=== PATIENT | male | born 1960 | race Caucasian/White ===

== ENCOUNTER 2018-11-17 08:20 | Inpatient (IN) | payer OTHER ==
[~2018-11-17] VITALS: Ht 177.8 cm; Wt 84.2 kg
[2018-11-17] MEDS: SODIUM CHLORIDE 0.9% 1,000 ML IV SCH ×3 (08:44→23:57)
[2018-11-17] MEDS ORDERED: SODIUM CHLORIDE 0.9% 1,000 ML IV SCH (08:51)
[2018-11-17 08:59] VITALS: BP 118/81
[2018-11-17] MEDS ORDERED: PLEASE ENTER ALLERGIES MC SCH (09:00)
[2018-11-17] MEDS ORDERED: PLEASE ENTER HEIGHT AND WEIGHT MC SCH (09:00)
[2018-11-17] MEDS ORDERED: BUDE10.2 INH (09:09)
[2018-11-17] MEDS ORDERED: TEST1.25 TP (09:09)
[2018-11-17] MEDS ORDERED: ALPR-475 PO (09:09)
[2018-11-17] MEDS ORDERED: TAMS0.4C2 PO (09:09)
[2018-11-17] MEDS ORDERED: OMEP-110 PO (09:09)
[2018-11-17] MEDS ORDERED: ALBU18HF INH (09:09)
[2018-11-17] MEDS ORDERED: ASPI81TA45 PO (09:09)
[2018-11-17] MEDS ORDERED: SUVO20TA PO (09:09)
[2018-11-17] MEDS ORDERED: MIDAZOLAM 1 MG/ML, 5ML ONE (10:04)
[2018-11-17] MEDS ORDERED: FENTANYL PF 100 MCG/2ML ONE ×2 (10:04→10:18)
[2018-11-17] MEDS ORDERED: LIDOCAINE 1%, 20ML ONE (10:04)
[2018-11-17] MEDS ORDERED: CEFAZOLIN PMX 1GM/50ML 50 ML ONE (10:04)
[2018-11-17] MEDS ORDERED: CEFAZOLIN 1,000 MG ONE (10:05)
[2018-11-17] MEDS ORDERED: TEMPLATE NON-FORMULARY MED. (Albuterol Sulfate (Ventolin Hfa) 2 PUFF(S)) INH PRN (11:30)
[2018-11-17] MEDS ORDERED: HOLD MEDICATION MC PRN (11:30)
[2018-11-17] MEDS ORDERED: ACETAMINOPHEN 325 MG TABLET ONE (12:20)
[2018-11-17] MEDS: ACETAMINOPHEN 325 MG TABLET PO PRN ×3 (12:23→20:36)
[2018-11-17 13:54] VITALS: BP 107/64
[2018-11-17] MEDS ORDERED: ALBUTEROL SULFATE 2.5 MG/3 ML HHN PRN (14:30)
[2018-11-17] MEDS: CEFAZOLIN PMX 1GM/50ML 50 ML IVPB SCH (18:20)
[2018-11-17 20:10] VITALS: BP 132/82
[2018-11-17] MEDS ORDERED: ALBUTEROL HFA 90 MCG/SPRAY INH PRN (20:30)
[2018-11-17] MEDS: (Budesonide/Formoterol Fumarate (Symbicort 160-4.5 Mcg Inhaler INH SCH (20:36)
[2018-11-17] MEDS: SODIUM CHLORIDE FLUSH 10ML SYR IVF SCH (20:37)
[2018-11-18] MEDS: ACETAMINOPHEN 325 MG TABLET PO PRN (01:43)
[2018-11-18] MEDS: CEFAZOLIN PMX 1GM/50ML 50 ML IVPB SCH (01:43)
[2018-11-18 02:30] VITALS: BP 124/80
[2018-11-18 06:42] VITALS: BP 118/75
[2018-11-18] MEDS: SODIUM CHLORIDE 0.9% 1,000 ML IV SCH (06:53)
[2018-11-18] MEDS: (Budesonide/Formoterol Fumarate (Symbicort 160-4.5 Mcg Inhaler INH SCH (08:07)
[2018-11-18] MEDS: SODIUM CHLORIDE FLUSH 10ML SYR IVF SCH (08:07)
[2018-11-18] MEDS ORDERED: ACET325T14 PO (08:28)
[2018-11-18] MEDS ORDERED: OMEPRAZOLE 20 MG CAPSULE.DR PO SCH (09:00)
[2018-11-18] MEDS ORDERED: ASPIRIN 81 MG TABLET EC PO SCH (09:00)
[2018-11-18] MEDS ORDERED: TESTOSTERONE TP SCH (09:00)
[2018-11-18] MEDS ORDERED: TAMSULOSIN 0.4 MG CAP.ER.24H PO SCH (09:00)
== END 2018-11-18 10:40 | disposition home or self-care (01) | DRG 242 ==
LOC: CACL 08:20 → ORIP 11:16 → 5SO 12:57 → DCLOUNGE 11-18 10:23
PROVIDERS: ADMIT Internal Medicine Cardiovascular Disease; ATTEND Internal Medicine Cardiovascular Disease
PROC: 0JH606Z Insertion of Pacemaker, Dual Chamber into Chest Subcutaneous Tissue and Fascia, Open Approach (ICD-10-PCS; principal; 2018-11-17)
PROC: 02HK3JZ Insertion of Pacemaker Lead into Right Ventricle, Percutaneous Approach (ICD-10-PCS; 2018-11-17)
PROC: 02H63JZ Insertion of Pacemaker Lead into Right Atrium, Percutaneous Approach (ICD-10-PCS; 2018-11-17)
DX: I49.5 Sick sinus syndrome (principal); I46.9 Cardiac arrest, cause unspecified; J45.909 Unspecified asthma, uncomplicated; E78.5 Hyperlipidemia, unspecified; K21.9 Gastro-esophageal reflux disease without esophagitis
CPT/HCPCS: 33208; 71045; 99156; C1779; C1785; C1892; G0378; J0690; J2250; J3010; J3490; Q9967

== ENCOUNTER → 2019-10-19 | Outpatient (CLI) | payer BC, OTHER ==
[~2019-10-19] MED LIST: ACET325T14 PO; ALBU18HF INH; ALPR0.5T7 PO; ASPI81TA45 PO; BUDE10.2 INH; OMEP-110 PO; SUVO20TA PO; TAMS0.4C2 PO; TEST1.25 TP
== END | disposition home or self-care (01) ==
LOC: RAD 14:56
PROVIDERS: ATTEND Family Medicine
DX: M47.817 Spondylosis without myelopathy or radiculopathy, lumbosacral region (principal); M48.061 Spinal stenosis, lumbar region without neurogenic claudication; M47.814 Spondylosis without myelopathy or radiculopathy, thoracic region; M51.25 Other intervertebral disc displacement, thoracolumbar region
CPT/HCPCS: 72148

== ENCOUNTER 2021-04-25 10:11 | Outpatient (CLI) | payer BC, OTHER ==
[2021-04-25] MEDS ORDERED: GADOTERATE 10 MMOL/20 ML VIAL ONE (11:00)
== END 2021-04-25 23:59 | disposition home or self-care (01) ==
LOC: RAD 10:11
PROVIDERS: ATTEND Family Medicine
DX: S72.425A Nondisplaced fracture of lateral condyle of left femur, initial encounter for closed fracture (principal); S83.512A Sprain of anterior cruciate ligament of left knee, initial encounter; S80.02XA Contusion of left knee, initial encounter; M25.462 Effusion, left knee; M22.42 Chondromalacia patellae, left knee; I67.82 Cerebral ischemia; S82.112A Displaced fracture of left tibial spine, initial encounter for closed fracture; R53.82 Chronic fatigue, unspecified; X58.XXXA Exposure to other specified factors, initial encounter; Y93.89 Activity, other specified; Y92.89 Other specified places as the place of occurrence of the external cause; Y99.8 Other external cause status
CPT/HCPCS: 70553; 73721; A9575